=== PATIENT | female | born 1955 | race Caucasian/White ===

== ENCOUNTER 2016-05-26 09:35 | Emergency (ER) | payer OTHER ==
[~2016-05-26] VITALS: Ht 157.5 cm; Wt 65.0 kg
[~2016-05-26 09:35] MED LIST: DIAZ10TA4 PO; DIPH-232 PO; NAPR-683 PO; OXYC80TA PO
[2016-05-26 09:44] VITALS: Ht 157.5 cm; Wt 65.0 kg
[2016-05-26] MEDS ORDERED: HYDROCODONE/APAP (5/325) TAB PO ONE (11:30)
--- NOTE | 2016-05-26 11:39 | RADRPT ---
PROCEDURE: Left ankle series CLINICAL INDICATION: Left ankle pain. History of ulcer. TECHNIQUE: AP, oblique, and lateral views of the left ankle were obtained. COMPARISON: None FINDINGS: No acute fracture or dislocations are seen. Diffuse osteopenia is seen. Periosteal elevation is see n in the distal fibula. Screw fixation in the lateral aspect of the midfoot is seen. The ankle mor tise is intact. The articular surfaces are normal. No evidence of a joint effusion is seen. The d escribed ulcer is not seen on the current examination. Otherwise, the soft tissue structures are in tact. IMPRESSION: 1. No radiographic evidence of osteomyelitis. If clinical concern for osteomyelitis persist, an MR I is recommended. 2. Diffuse osteopenia. 3. Periosteal elevation in the distal fibula. RPTAT: HPNM Physician Digna Date Time Electronically viewed and signed by Physician Digna on 05/26/2016 11:39 /
[2016-05-26 11:59] LABS: BASOPHIL # 0.1 10^3/ul (0.0-0.1); BASOPHILS % 0.8 % (0.0-2.0); EOSINOPHILS # 0.1 10^3/ul (0.0-0.5); EOSINOPHILS % 1.1 % (0.0-7.0); HEMATOCRIT 44.3 % (37.0-47.0); HEMOGLOBIN 15.2 g/dl (12.0-16.0); LYMPHOCYTES # 0.9 10^3/ul (0.8-2.9); LYMPHOCYTES % 13.9 % (15.0-51.0); MEAN CORPUSCULAR HEMOGLOBIN 32.1 pg (29.0-33.0); MEAN CORPUSCULAR HGB CONC 34.4 g/dl (32.0-37.0); MEAN CORPUSCULAR VOLUME 93.3 fl (82.0-101.0); MEAN PLATELET VOLUME 8.3 fl (7.4-10.4); MONOCYTE # 0.3 10^3/ul (0.3-0.9); MONOCYTES % 4.2 % (0.0-11.0); NEUTROPHIL # 5.2 10^3/ul (1.6-7.5); PLATELET COUNT 247 10^3/UL (140-440); RED BLOOD COUNT 4.75 10^6/ul (4.20-5.40); RED CELL DISTRIBUTION WIDTH 13.4 % (11.5-14.5); UNCORRECTED WBC 6.4 10^3/ul (4.8-10.8); WHITE BLOOD COUNT 6.4 10^3/ul (4.8-10.8)
[2016-05-26 12:01] LABS: CONDITION 1
[2016-05-26] MEDS ORDERED: KETOROLAC 30 MG INJ IM STA (12:02)
[2016-05-26 12:04] LABS: ALBUMIN 4.1 g/dl (3.3-4.9)
[2016-05-26 12:05] LABS: POTASSIUM 3.9 mmol/L (3.5-5.1)
[2016-05-26 12:07] LABS: ALBUMIN/GLOBULIN RATIO 1.24; BILIRUBIN,INDIRECT 0.1 mg/dl (0-1.1); BILIRUBIN,TOTAL 0.1 mg/dl (0.2-1.3); CREATININE 0.68 mg/dl (0.44-1.00); TOTAL PROTEIN 7.4 g/dl (6.1-8.1)
[2016-05-26 12:08] LABS: CALCIUM 9.8 mg/dl (8.4-10.2)
[2016-05-26 12:10] LABS: C-REACTIVE PROTEIN 0.5 mg/dl (0.0-0.9)
[2016-05-26] MEDS ORDERED: CLIN-73 PO (12:29)
[2016-05-26] MEDS ORDERED: CEPH-443 PO (12:29)
[2016-05-26] MEDS ORDERED: IBUP-1542 PO (12:30)
--- NOTE | 2016-05-26 12:42 | ERD ---
ER Documentation Chief Complaint Date/Time DATE: 05/26/16 TIME: 12:32 Chief Complaint LEFT FOOT SORES ON LEFT ANKLE C/O PAIN HPI Patient is a 60-year-old female with a past medical history of arthritis, left Charcot foot, left tib-fib fracture status post ORIF who presents to the emergency department with left foot sores and foot pain. She states she's had the sores for "many years now." Patient denies treatment or workup in the last year. Patient states that "they do not heal." She states that she put foot cream on the affected area "to soften her skin." Over the last week the sore has been growing in size and is more painful. Patient reports discharge from sore site. Patient states that she's taking pain medication daily and ran out of her OxyContin. She last took medication yesterday. She states that her current pain is 10 out of 10. Patient ambulates with walker. Patient denies history of diabetes. She denies any fever, chills, nausea, vomiting. She denies any recent trauma or falls. ROS All systems reviewed and are negative except as per history of present illness. Medications Home Meds Active Scripts Ibuprofen* (Motrin*) 600 Mg Tab, 600 MG PO Q6, #30 TAB Prov:JAQUI VALENCIA PA-C 05/26/16 Clindamycin Hcl* (Clindamycin Hcl*) 300 Mg Capsule, 300 MG PO TID for 10 Days, CAP Prov:JAQUI VALENCIA PA-C 05/26/16 Reported Medications Oxycodone Hcl (Oxycodone Hcl) 80 Mg Tab.sr.12h, 80 MG PO QID Y 01/11/12 Diazepam* (Diazepam*) 10 Mg Tablet, 10 MG PO BID Y 01/11/12 Naproxen* (Naproxen*) 250 Mg Tablet, 250 MG PO BID 01/11/12 Diphenoxylate Hcl-Atropine (Lomotil) 1 Tab Tablet, 1 TAB PO DAILY Y 01/11/12 Discontinued Scripts Cephalexin* (Keflex*) 500 Mg Capsule, 500 MG PO QID for 7 Days, CAP Prov:JAQUI VALENCIA PA-C 05/26/16 Allergies Allergies: Coded Allergies: Penicillins (Verified Allergy, 01/11/12) PMhx/Soc History of Surgery: Yes (01/12/12 S/O ORIFTIB/FIB FX.BUNIONSURGERY.) Anesthesia Reaction: No Hx Neurological Disorder: No Hx Respiratory Disorders: No Hx Cardiac Disorders: Yes (HTN.) Hx Psychiatric Problems: Yes (DEPRESSION 2/2 MEDICAL ISSUES) Hx Miscellaneous Medical Probl: No Hx Alcohol Use: No Hx Substance Use: No Hx Tobacco Use: No Smoking Status: Never smoker FmHx Family History: No diabetes Physical Exam Vitals Vital Signs Date Time Temp Pulse Resp B/P Pulse Ox O2 Delivery O2 Flow Rate FiO2 05/26/16 09:44 97.8 80 18 161/90 100 Physical Exam GENERAL: Well-developed, well-nourished female. Appears in no acute distress. Ambulates with his walker HEAD: Normocephalic, atraumatic. EYES: Pupils are equally reactive bilaterally. EOMs grossly intact. No conjunctival erythema. ENT: Moist mucous membranes. No uvula deviation. No kissing tonsils. NECK: Supple. No lymphadenopathy or thyromegaly. No meningismus. LUNG: Clear to auscultation bilaterally. No rhonchi, wheezing, rales or coarse breath sounds. HEART: Regular rate and rhythm. No murmurs, rubs or gallops. EXTREMITIES: Equal pulses bilaterally. No unilateral leg swelling. NEUROLOGIC: Alert and oriented. Moving all four extremities without any difficulty. Normal speech. Steady gait. SKIN: Normal color. Dry, flaky skin of bilateral feet and lower legs. +Lower leg discoloration bilaterally. LEFT FOOT: 3rd toe deformity noted. 3 cm circular ulcer with surrounding erythema noted to medial aspect of L ankle. Minimal swelling. Serosanguineous discharge noted. Decreased range of motion of the ankle secondary to swelling and stiffness. Medial aspect of ankle tender to palpation. Sensation intact to light touch. Neurovascularly intact. (Able to plantarflex, dorsiflex, cayla foot , invert foot, raise big toe.) 2+ DP pulses. Result Diagram: 05/26/16 1113 05/26/16 1113 Results 24 hrs Laboratory Tests Test 05/26/16 11:13 Alanine Aminotransferase (ALT/SGPT) 26IU/L Albumin 4.1g/dl Albumin/Globulin Ratio 1.24 Alkaline Phosphatase 101IU/L Anion Gap 15 Aspartate Amino Transf (AST/SGOT) 30IU/L Basophils # 0.110^3/ul Basophils % 0.8% Blood Urea Nitrogen 7mg/dl C-Reactive Protein 0.5mg/dl Calcium Level 9.8mg/dl Carbon Dioxide Level 30mmol/L Chloride Level 102mmol/L Creatinine 0.68mg/dl Direct Bilirubin 0.00mg/dl Eosinophils # 0.110^3/ul Eosinophils % 1.1% Globulin 3.30g/dl Glucose Level 107mg/dl Hematocrit 44.3% Hemoglobin 15.2g/dl Indirect Bilirubin 0.1mg/dl Lymphocytes # 0.910^3/ul Lymphocytes % 13.9% Mean Corpuscular Hemoglobin 32.1pg Mean Corpuscular Hemoglobin Concent 34.4g/dl Mean Corpuscular Volume 93.3fl Mean Platelet Volume 8.3fl Monocytes # 0.310^3/ul Monocytes % 4.2% Neutrophils # 5.210^3/ul Neutrophils % 80.0% Nucleated Red Blood Cells # 0.010^3/ul Nucleated Red Blood Cells % 0.0/100WBC Platelet Count 42378^3/UL Potassium Level 3.9mmol/L Red Blood Count 4.7510^6/ul Red Cell Distribution Width 13.4% Sodium Level 143mmol/L Total Bilirubin 0.1mg/dl Total Protein 7.4g/dl White Blood Count 6.410^3/ul Current Medications Medications (Trade) Dose Ordered Sig/Jannet Route PRN Reason Start Time Stop Time Status Last Admin Dose Admin Acetaminophen/ Hydrocodone Bitart ([place] (5/325)) 1 tab ONCE ONCE PO 05/26/16 11:30 05/26/16 11:31 DC 05/26/16 11:30 Ketorolac Tromethamine (Toradol) 30 mg ONCE STAT IM 05/26/16 12:02 05/26/16 12:03 DC 05/26/16 12:25 Procedures/MDM ED COURSE: The patient was stable throughout ED course. I kept the patient and/or family informed of laboratory and diagnostic imaging results throughout the ED course. DIAGNOSTIC IMAGING: Read by radiologist. Patient: BELÉN ORLANDO : 1955 Age: 60 Sex: F MR #: [id number] DOS: 05/26/16 1102 Ordering MD: JAQUI VALENCIA PA-C Location: [facility] Room/Bed: PROCEDURE: Left ankle series CLINICAL INDICATION: Left ankle pain. History of ulcer. TECHNIQUE: AP, oblique, and lateral views of the left ankle were obtained. COMPARISON: None FINDINGS: No acute fracture or dislocations are seen. Diffuse osteopenia is seen. Periosteal elevation is seen in the distal fibula. Screw fixation in the lateral aspect of the midfoot is seen. The ankle mortise is intact. The articular surfaces are normal. No evidence of a joint effusion is seen. The described ulcer is not seen on the current examination. Otherwise, the soft tissue structures are intact. IMPRESSION: 1. No radiographic evidence of osteomyelitis. If clinical concern for osteomyelitis persist, an MRI is recommended. 2. Diffuse osteopenia. 3. Periosteal elevation in the distal fibula. RPTAT: HPNM Physician Digna Date Time Electronically viewed and signed by Physician Digna on 05/26/2016 11 :39 / CC: JAQUI VALENCIA PA-C MEDICATIONS GIVEN: [place], Toradol IM Patient tolerated medication well with no adverse reactions. Patient reported improvement in pain. Patient was noted to be ambulating with her walker without any difficulty. MEDICAL DECISION MAKING: This is a 60-year-old female who presents with left ankle pain and sores for many years now. Vital signs were reviewed. Patient was afebrile. Xrays showed No radiographic evidence of osteomyelitis. If clinical concern for osteomyelitis persist, an MRI is recommended. Diffuse osteopenia. Periosteal elevation in the distal fibula. CBC showed no evidence of systemic infection or severe anemia. CMP showed no evidence of electrolyte abnormalities, severe acidosis, alkalosis, renal failure, or liver disease. CRP was negative. Given these findings, the patients presentation is most consistent with open wound/ ulcer with poor healing to medial aspect of ankle. I have a much lower clinical concern for ankle dislocation, tibia fracture, fibula fracture, ankle fracture, tarsal bone fracture, metatarsal fracture, phalangeal fracture, gout, septic joint, DVT, diabetic neuropathy or pes planus. At this time, unable to rule out any tendon and ligament injuries. Per [facility] report, patient was last prescribed Oxycontin 80 mg # 60 tabs on . At this time, I will not prescribe any narcotic medication. Patient will need to follow-up with her physician, Dr. Shayy Summers, for refill of medication. Patient understands and is in agreement with this plan. PRESCRIPTIONS: Ibuprofen, clindamycin DISCHARGE: At this time, patient is stable for discharge and outpatient management. RICE therapy and ROM exercises were advised to avoid stiffness. I have instructed the patient to follow-up with his/her primary care physician in 1-2 days. I have discussed with the patient the possibility of needing to see an learning operations specialist for further workup and imaging if the pain persists. I have instructed the patient to promptly return to the ER for any new or worsening symptoms including increased pain, swelling, redness, warmth or fever. The patient and/or family expressed understanding of and agreement with this plan. All questions were answered. Home care instructions were provided. Departure Diagnosis: Primary Impression: Chronic foot ulcer Laterality: left Non-pressure ulcer stage: unspecified non-pressure ulcer stage Qualified Code: L97.529 - Chronic foot ulcer, left, with unspecified severity Additional Impression: Cellulitis Site of cellulitis: unspecified site Qualified Code: L03.90 - Cellulitis, unspecified cellulitis site Condition: Stable Patient Instructions: Cellulitis, Wound Care Referrals: ALICIA HOFFMAN MD (PCP) [facility] YOU HAVE RECEIVED A MEDICAL SCREENING EXAM AND THE RESULTS INDICATE THAT YOU DO NOT HAVE A CONDITION THAT REQUIRES URGENT TREATMENT IN THE EMERGENCY DEPARTMENT. FURTHER EVALUATION AND TREATMENT OF YOUR CONDITION CAN WAIT UNTIL YOU ARE SEEN IN YOUR DOCTORS OFFICE WITHIN THE NEXT 1-2 DAYS. IT IS YOUR RESPONSIBILITY TO MAKE AN APPOINTMENT FOR [facility]. IF YOU HAVE A PRIMARY DOCTOR --you should call your primary doctor and schedule an appointment IF YOU DO NOT HAVE A PRIMARY DOCTOR YOU CAN CALL OUR PHYSICIAN REFERRAL HOTLINE AT IF YOU CAN NOT AFFORD TO SEE A PHYSICIAN YOU CAN CHOSE FROM THE FOLLOWING [facility] [address] [facility] [address] [facility] [address] [facility] [address] [facility] [address] [facility] [address] [facility]. [facility]. [address] [facility]. [facility] YOU HAVE RECEIVED A MEDICAL SCREENING EXAM AND THE RESULTS INDICATE THAT YOU DO NOT HAVE A CONDITION THAT REQUIRES URGENT TREATMENT IN THE EMERGENCY DEPARTMENT. FURTHER EVALUATION AND TREATMENT OF YOUR CONDITION CAN WAIT UNTIL YOU ARE SEEN IN YOUR DOCTORS OFFICE WITHIN THE NEXT 1-2 DAYS. IT IS YOUR RESPONSIBILITY TO MAKE AN APPOINTMENT FOR [facility]. IF YOU HAVE A PRIMARY DOCTOR --you should call your primary doctor and schedule and appointment IF YOU DO NOT HAVE A PRIMARY DOCTOR YOU CAN CALL OUR PHYSICIAN REFERRAL HOTLINE AT . IF YOU CAN NOT AFFORD TO SEE A PHYSICIAN YOU CAN CHOSE FROM THE FOLLOWING [facility] INSTITUTIONS: [facility] [address] [place] [address] [facility] [address] [place], [place] [id number] [place] [address] [address] [place] [address] Additional Instructions: At this time, I will not refill the patient's prescription for Oxycontin. Patient will need to see Dr. Shayy Summers for refill. Patient will need to follow up with [facility] prevention clinic for further wound care. See referral information above. Call your primary care doctor TOMORROW for an appointment during the next 1-2 days.See the doctor sooner or return here if your condition worsens before your appointment time. JAQUI VALENCIA PA-C May 26, 2016 12:41
== END 2016-05-26 13:43 | disposition home or self-care (01) ==
LOC: FTE 09:35
DX: L97.529 Non-pressure chronic ulcer of other part of left foot with unspecified severity (principal); L03.116 Cellulitis of left lower limb; I10 Essential (primary) hypertension
CPT/HCPCS: 73610; 80053; 85025; 86140; 96372; J1885; Z7502; Z7610